=== PATIENT | female | born 1940 | race Caucasian/White ===

== ENCOUNTER → 2016-12-01 | Outpatient (CLI) | payer MEDICARE ==
--- NOTE | 2016-12-01 14:55 | US ---
EXAMINATION TYPE: US thyroid st tissue head/neck DATE OF EXAM: 12/01/2016 COMPARISON: US CLINICAL HISTORY: E03.9 HYPOTHYROIDISM,E04.2 MULTINODULAR GOITER,D72.819. History of thyroid nodules, on thyroid meds GLAND SIZE: Right Lobe: 4.2 x 1.5 x 1.4 cm Overall Parenchyma: heterogenous Left Lobe: 4.2 x 1.4 x 1.1 cm Overall Parenchyma: heterogeneous Isthmus Thickness: 0.4 cm NODULES RIGHT: # of nodules measured on right: 1 1. 0.5 X 0.4 x 0.5 cm hypoechoic mixed nodule at the upper pole with well-defined margins. This nod ule is wider than tall and shows intranodular vascularity. LEFT: # of nodules measured on left: 1 1. 0.7 X 0.7 x 0.6 cm isoechoic solid nodule at the lower pole with well-defined margins. This nodu le is taller than wide and shows no intranodular vascularity. ISTHMUS: # of nodules measured in the isthmus: 0 Bilateral neck scanned, left neck: 1.1cm hypoechoic vascular area, probable lymph node. Heterogeneous thyroid with bilateral subcentimeter nodules with largest measured on each side. IMPRESSION: MULTINODULAR GOITER.
== END | disposition home or self-care (01) ==
LOC: RADUSWWP 14:03
PROVIDERS: ATTEND Family Medicine
DX: E04.2 Nontoxic multinodular goiter (principal); Z00.00 Encounter for general adult medical examination without abnormal findings; D72.819 Decreased white blood cell count, unspecified; E03.9 Hypothyroidism, unspecified
CPT/HCPCS: 76536

== ENCOUNTER → 2018-12-13 | Outpatient (CLI) | payer MEDICARE ==
--- NOTE | 2018-12-13 09:01 | US ---
EXAMINATION TYPE: US abdomen complete DATE OF EXAM: 12/13/2018 COMPARISON: NONE CLINICAL HISTORY: R10.31 right lower quadrant pain. EXAM MEASUREMENTS: Liver Length: 14.7 cm Gallbladder Wall: 0.2 cm CBD: 0.2 cm Spleen: 6.5 cm Right Kidney: 10.2 x 4.5 x 5.2 cm Left Kidney: 9.5 x 4.0 x 5.5 cm Pancreas: Obscured by bowel gas Liver: Heterogeneous Gallbladder: wnl Evidence for sonographic Novoa's sign: No CBD: wnl Spleen: wnl Right Kidney: No hydronephrosis or masses seen Left Kidney: No hydronephrosis or masses seen Upper IVC: wnl Abd Aorta: Moderate amount of atherosclerotic plaque visualized. Within the proximal aorta there nikki ears to be saccular ectasia measuring up to 2.6 cm. The liver is heterogeneous. The intrahepatic portion of the IVC and proximal abdominal aorta are wit hin normal limits. There is no evidence of cholelithiasis. Common bile duct is unremarkable. The v isualized portions of the pancreas are homogenous. The spleen is unremarkable. Kidneys are symmetri c and free of hydronephrosis. No renal lesions are seen. Right lower quadrant was scanned with no paez spicious sonographic abnormality. IMPRESSION: 1. No suspicious sonographic abnormality in the right lower quadrant and the patient's area of pain. 2. Liver is slightly heterogenous but most commonly relates to early degree of hepatic steatosis. Cor relate with liver function tests. 3. Saccular proximal abdominal aortic ectasia measuring up to 2.6 cm.
== END | disposition home or self-care (01) ==
LOC: RADUSWWP 07:25
PROVIDERS: ATTEND Family Medicine
DX: K76.0 Fatty (change of) liver, not elsewhere classified (principal); I77.811 Abdominal aortic ectasia
CPT/HCPCS: 76700

== ENCOUNTER → 2019-12-26 | Outpatient (CLI) | payer MEDICARE ==
--- NOTE | 2020-01-01 10:42 | MM ---
Reason for exam: screening (asymptomatic). Last mammogram was performed 1 year and 1 month ago. History: Patient is postmenopausal and history of other cancer. Benign cyst aspiration of the right breast, 1975. Physical Findings: A clinical breast exam by your physician is recommended on an annual basis and results should be correlated with mammographic findings. MG 3D Screening Mammo W/Cad Bilateral CC and MLO view(s) were taken. Prior study comparison: December 02, 2018, mammogram, performed at [facility]. November 14, 2018, mammogram, performed at [facility]. The breast tissue is heterogeneously dense. This may lower the sensitivity of mammography. There is no discrete abnormality. No significant changes when compared with prior studies. ASSESSMENT: Negative, BI-RAD 1 RECOMMENDATION: Routine screening mammogram of both breasts in 1 year.
== END | disposition home or self-care (01) ==
LOC: RADMAMWWP 11:02
PROVIDERS: ATTEND Family Medicine
DX: Z12.31 Encounter for screening mammogram for malignant neoplasm of breast (principal)
CPT/HCPCS: 77063; 77067

== ENCOUNTER → 2020-03-10 | Outpatient (CLI) | payer MEDICARE ==
[~2020-03-10] MED LIST: REGADENOSON 0.4 MG/5 ML SYRINGE IV ONE
--- NOTE | 2020-03-10 11:32 | NM ---
EXAMINATION TYPE: NM stress lexiscan cardiolite DATE OF EXAM: 03/10/2020 COMPARISON: Prior nuclear medicine stress study November 23, 2014 HISTORY: History of tobacco use in the past along with COPD and family history of heart attack presen ts with chest pain TECHNIQUE: After the intravenous administration of 9.9 mCi Tc 99m Sestamibi - Cardiolite resting SPE CT images acquired 45 minutes post injection. The patient received 0.4mg Lexiscan, 25.1 mCi Tc 99m Sestamibi - Stress images obtained [address] injection FINDINGS: Review of stress and rest SPECT images demonstrates no distinct perfusion abnormality. Polar map pat ewhat confusing as there appears to be satisfactory radiotracer uptake on the raw data images. Gated analysis shows normal wall motion with an estimated left ventricular ejection fraction of 67 %. IMPRESSION: No scintigraphic evidence for reversible ischemia.
--- NOTE | 2020-03-10 14:44 | EST ---
EXERCISE STRESS AGE: 79 SEX: F HT: 5'6" WT: 160 lbs. PROTOCOL: Lexiscan STAGE: DURATION OF EXERCISE: 6 minutes HEART RATE REST: 56 BLOOD PRESSURE REST: 148/66 MAXIMUM HEART RATE ACHIEVED: 79 MAXIMUM BLOOD PRESSURE: 148/66 85% MPHR: 120 100% MPHR: 141 METS: INDICATIONS: Chest pain. CLINICAL INFORMATION: DATE OF SERVICE 03/10/2020 Baseline EKG revealed normal sinus rhythm without significant ST-T changes. There was some baseline artifact. With Lexiscan administration, the heart rate changed from 56- 79 beats per minute and blood pressure changed from 148/66 to 128/62, and came back to baseline. The patient did not have any significant symptoms. By EKG criteria, this is unremarkable Lexiscan stress test. The nuclear scan results which are more pertinent will be reported by the radiologist. GISSELLE / ILIANA: [id number] /
== END | disposition home or self-care (01) ==
LOC: RADNMMAIN 08:47
PROVIDERS: ATTEND Family Medicine
DX: R07.9 Chest pain, unspecified (principal); Z82.41 Family history of sudden cardiac death
CPT/HCPCS: 93017; 78452; A9500; J2785

== ENCOUNTER → 2020-04-08 | Outpatient (CLI) | payer MEDICARE ==
--- NOTE | 2020-04-08 20:23 | BD ---
EXAMINATION TYPE: Axial Bone Density DATE OF EXAM: 04/08/2020 COMPARISON: 04.08.2010 CLINICAL HISTORY: 79 YR OLD FEMALE.....ICD-10 CODE: M85.80 DISORDER OF BONE DENSITY Height: 63.4 Weight: 162 FRAX RISK QUESTIONS: Current Tobacco Use: QUIT 20 YRS AGO RISK FACTORS HISTORY OF: Surgery to Spine LAMINECTOMY LUMBAR SPINE....LONG AGO Family History of Osteoporosis: MOTHER Diet low in dairy products/other sources of calcium: NEEDS TO BE LACTOSE FREE Postmenopausal woman: YES, AT ABOUT 55 YRS OLD Take estrogen and/or progesterone medications: IN THE PAST FOR A COUPLE YRS ONLY Lost more than 2 inches in height since high school: YES Hyperparathyroidism: NO Adrenal Insufficiency: NO MEDICATIONS: Prednisone or other steroids: IN THE PAST, BUT NOT REGULARLY Thyroid Medications: YES, SYNTHROID FOR ABOUT 3 YRS Additional Medications: NSAIDS FOR ARTHRITIS, REFLUX MEDS PRN, CHOLESTEROL MEDS, VIT D3 Additional History: CHOLESTEROL AND ARTHRITIS EXAM MEASUREMENTS: Bone mineral densitometry was performed using the [employer] System. SPINE NOT SCANNED.....LAMINECTOMY Bone mineral density about the R hip (g/cm2): 0.852 Bone mineral density about the L hip (g/cm2): 0.983 T Score values are as follows: -----R Neck: -0.3 -----L Neck: 0.0 -----R Total: -1.2 -----L Total: -0.2 Bone mineral density has: Increased 2.6% since study of: 04.08.2010 FRAX%s: THERE IS A 9.3% CHANCE FOR A MAJOR OSTEOPOROTIC FX AND A 1.3% FOR HIP.....PROBABILITY FOR F X IN 10 YRS TIME Bone mineral density about the L Wrist (g/cm2): 0.445 T Score values are as follows: -----Dist. R+U: -3.5 -----Prox. R+U: -2.0 -----Radius total: -3.8 Bone mineral density FIRST FOREARM SCAN IMPRESSION: Osteoporosis (T Score less than -2.5). There is increased fracture risk and therapy is usually indicated based on age. Re-Screen 1-2 years. NOTE: T-SCORE=SD OF THE YOUNG ADULT MEAN.
== END | disposition home or self-care (01) ==
LOC: RADBDWWP 10:04
PROVIDERS: ATTEND Family Medicine
DX: M81.0 Age-related osteoporosis without current pathological fracture (principal)
CPT/HCPCS: 77080

== ENCOUNTER → 2020-11-17 | Outpatient (CLI) | payer MEDICARE ==
[2020-11-18 00:32] LABS: African American GFR (CKD) 70.5 (60.0-200.0); Albumin/Globulin Ratio 1.33 (1.60-3.17); Anion Gap 7.6 mmol/L (4.00-12.00); BUN/Creat Ratio 25.56 Ratio (12.00-20.00); Calcium 9.2 mg/dL (8.7-10.3); Carbon Dioxide 26.4 mmol/L (21.6-31.8); Non-African American GFR(CKD) 60.8 (60.0-200.0); Potassium 4.8 mmol/L (3.5-5.5); Total Bilirubin 0.6 mg/dL (0.2-1.2)
== END | disposition home or self-care (01) ==
LOC: LABWHC1 12:55
PROVIDERS: ATTEND Family Medicine
DX: E03.9 Hypothyroidism, unspecified (principal); M85.9 Disorder of bone density and structure, unspecified
CPT/HCPCS: 36415; 80053; 84443

== ENCOUNTER → 2021-01-05 | Outpatient (CLI) | payer MEDICARE ==
--- NOTE | 2021-01-06 14:55 | MM ---
Reason for exam: screening (asymptomatic). Last mammogram was performed 1 year ago. History: Patient is postmenopausal and history of other cancer. Benign cyst aspiration of the right breast, 1975. Physical Findings: A clinical breast exam by your physician is recommended on an annual basis and results should be correlated with mammographic findings. MG 3D Screening Mammo W/Cad Bilateral CC and MLO view(s) were taken. Prior study comparison: December 26, 2019, bilateral MG 3d screening mammo w/cad. December 02, 2018, mammogram, performed at [facility]. The breast tissue is heterogeneously dense. This may lower the sensitivity of mammography. ASSESSMENT: Negative, BI-RAD 1 RECOMMENDATION: Routine screening mammogram of both breasts in 1 year.
== END | disposition home or self-care (01) ==
LOC: RADMAMWWP 09:58
PROVIDERS: ATTEND Family Medicine
DX: Z12.31 Encounter for screening mammogram for malignant neoplasm of breast (principal); Z78.0 Asymptomatic menopausal state; Z85.9 Personal history of malignant neoplasm, unspecified
CPT/HCPCS: 77063; 77067

== ENCOUNTER → 2022-01-09 | Outpatient (CLI) | payer MEDICARE ==
--- NOTE | 2022-01-10 11:32 | MM ---
Reason for Exam: Screening (asymptomatic). Last screening mammogram was performed 12 month(s) ago. Patient History: Menarche at age 13. First Full-Term at age 23. Postmenopausal. Other cancer. 1976, Benign Cyst Aspiration on the right side. Risk Values: Beverly 5 year model risk: 1.4%. NCI Lifetime model risk: 2.1%. Prior Study Comparison: 12/02/2018 Screening Mammogram, [facility]. 12/26/2019 Bilateral Screening Mammogram, [facility]. 01/05/2021 Bilateral Screening Mammogram, [facility]. Tissue Density: The breast tissue is heterogeneously dense. This may lower the sensitivity of mammography. Findings: Analyzed By CAD. There is no suspicious group of microcalcifications or new suspicious mass in either breast. Benign-appearing calcifications noted. Overall Assessment: Benign, BI-RAD 2 Management: Screening Mammogram of both breasts in 1 year. A clinical breast exam by your physician is recommended on an annual basis and results should be correlated with mammographic findings. Electronically signed and approved by: Clayton Chase M.D. Radiologis
== END | disposition home or self-care (01) ==
LOC: RADMAMWWP 10:53
PROVIDERS: ATTEND Family Medicine
DX: Z12.31 Encounter for screening mammogram for malignant neoplasm of breast (principal); Z78.0 Asymptomatic menopausal state
CPT/HCPCS: 77063; 77067

== ENCOUNTER → 2022-04-11 | Outpatient (CLI) | payer MEDICARE ==
--- NOTE | 2022-04-11 11:41 | US ---
EXAMINATION TYPE: US pelvis complete transvag DATE OF EXAM: 04/11/2022 COMPARISON: NONE CLINICAL HISTORY: R10.2 pelvic pain. Right side pain. TECHNIQUE: Transvaginal (TV) and Transabdominal (TA) . Transabdominal sonographic images of the pel vis were acquired. Transvaginal sonographic images were medically necessary to better assess the fol lowing anatomy: Endometrium, uterus Date of LMP: RESIDENCY PROGRAM COORDINATOR, EXAM MEASUREMENTS: Uterus: 6.7 x 3.9 x 3.0 cm Endometrial Stripe: 0.4 cm 1. Uterus: Anteverted Heterogenous, atrophic 2. Endometrium: Fluid visualized within endometrial canal 3. Right Ovary: Obscured by overlying bowel gas 4. Left Ovary: Obscured by overlying bowel gas 5. Bilateral Adnexa: Prominent vessels visualized in left adnexa. Echogenic area with shadow visual ized in left adnexa, no peristalsing, unknow origin, bowel vs calcification= 1.3 x 1.2 cm 6. Posterior cul-de-sac: no free fluid IMPRESSION: 1. No evidence for acute process. 2. Endometrium with trace fluid correlate for cervical stenosis. 3. Partially calcified lesion within the left adnexa with posterior acoustic shadowing. Further eval uation could be performed with CT. This may represent calcified inspissated stool versus calcified fi broid versus other etiologies.
== END | disposition home or self-care (01) ==
LOC: RADUSWWP 10:39
PROVIDERS: ATTEND Family Medicine
DX: R10.2 Pelvic and perineal pain (principal); N83.8 Other noninflammatory disorders of ovary, fallopian tube and broad ligament
CPT/HCPCS: 76830; 76856

== ENCOUNTER → 2022-04-19 | Outpatient (CLI) | payer MEDICARE ==
--- NOTE | 2022-04-19 13:38 | CT ---
EXAMINATION TYPE: CT pelvis w con DATE OF EXAM: 04/19/2022 COMPARISON: Pelvic ultrasound April 11, 2022 HISTORY: RLQ and pelvic pain CT DLP: 766.3 mGycm Automated exposure control for dose reduction was used. CONTRAST: Performed CT pelvis with oral and with IV Contrast, patient injected with 65ml mL of Isovue 300. FINDINGS: Oral contrast reaches level of the left and sigmoid colonic junction. No suspicious small or large caden wel dilatation. Contrast filled appendix. Visualized portion of both kidneys unremarkable. Uterus normal in size for a postmenopausal female and heterogeneous in appearance. There is left late ral 1.5 cm calcification or suspected calcified fibroid coronal image 36. Ovary smaller size correlat ing with patient's postmenopausal age. No free fluid in the pelvis. No adnexal masses. No groin hernia or adenopathy identified. Grade 1 anterolisthesis of L4 on L5. Moderate to severe disc space narrowing with vacuum disc phenome non at this level. Severe disc space narrowing L5-S1 level. Moderate axial joint space loss and spurr ing of both hips. IMPRESSION: No acute findings identified to account for patient's symptoms of right lower quadrant an d pelvic pain
== END | disposition home or self-care (01) ==
LOC: RADCTMAIN 10:40
PROVIDERS: ATTEND Family Medicine
DX: R10.84 Generalized abdominal pain (principal)
CPT/HCPCS: 82565; 84520; 72193; 36415; Q9967

== ENCOUNTER → 2023-01-11 | Outpatient (CLI) | payer MEDICARE ==
--- NOTE | 2023-01-11 12:27 | BD ---
EXAMINATION TYPE: Axial Bone Density DATE OF EXAM: 01/11/2023 CLINICAL HISTORY: 82 years old Female. ICD-10 CODE: M81.0 AGE RELATED OSTEOPOROSIS Height: 63.5" Weight: 162.4lbs FRAX RISK QUESTIONS: Alcohol (3 or more units per day): No Family History (Parent hip fracture): No Glucocorticoids (More than 3mos): Yes, off an on for about 4 years (Ex: prednisone, prednisolone, methylprednisolone, dexamethasone, and hydrocortisone). History of Fracture in Adulthood: Yes Secondary Osteoporosis: 1. Type 1 Diabetes: No 2. Hyperthyroidism: No 3. Menopause before 45: No 4. Malnutrition: No 5. Chronic liver disease: No Rheumatoid Arthritis: No Current Tobacco Use: No RISK FACTORS HISTORY OF: Hip Fracture (Right/Left): No Spine Fracture: No History of Wrist Fracture: No Surgery to Spine/Hip(right/left)/Wrist (right/left): Yes, laminectomy When: 53 years ago Family History of Osteoporosis: Yes, mother Active: Yes Diet low in dairy products/other sources of calcium: No Postmenopausal woman: Yes Lost more than 2 inches in height since high school: Yes Frequent falls: Yes Poor Health: No Hyperparathyroidism: No Adrenal Insufficiency: No MEDICATIONS: Prednisone or other steroids: No How Lon years on and off Thyroid Medications: Yes Which medication: Levothyroxine How Lon+ years Osteoporosis Medications: Yes, Roloxefne, 2-3 years Additional Medications: Cholesterol meds, levothyroxine, raloxifene, vitamin D, calcium Additional History: Laminectomy 50+ years ago EXAM MEASUREMENTS: Bone mineral densitometry was performed using the [employer] System. Bone mineral density about the R hip (g/cm2): 0.832 Bone mineral density about the L hip (g/cm2): 0.934 T Score values are as follows: -----R Neck: -0.4 -----L Neck: -0.4 -----R Total: -1.4 -----L Total: -0.6 Z Score values are as follows: -----R Neck: 1.7 -----L Neck: 1.7 -----R Total: 0.5 -----L Total: 1.3 Bone mineral density has: decreased -3.8% since study of: 04/08/2020 Bone mineral density about the L Wrist (g/cm2): 0.455 T Score values are as follows: -----Dist. R+U: -4.2 -----Prox. R+U: -2.1 -----Radius total: -3.6 Z Score values are as follows: -----Dist. R+U: -13 -----Prox. R+U: 0.7 -----Radius total: -0.7 Bone mineral density has: decreased -1.3% since study of: 04/08/2020 FRAX%s: The graph provided illustrates a 14.4% chance for a major osteoporotic fx and a 2.7% chance f or the hips probability for fx in 10 years time. IMPRESSION: Osteoporosis (T Score less than -2.5). There is increased fracture risk and therapy is usually indicated based on age. Re-Screen 1-2 years. NOTE: T-SCORE=SD OF THE YOUNG ADULT MEAN.
== END | disposition home or self-care (01) ==
LOC: RADBDWWP 11:15
PROVIDERS: ATTEND Family Medicine
DX: M81.0 Age-related osteoporosis without current pathological fracture (principal); M85.89 Other specified disorders of bone density and structure, multiple sites; M96.1 Postlaminectomy syndrome, not elsewhere classified
CPT/HCPCS: 77080

== ENCOUNTER 2023-03-24 11:13 | Observation (INO) | payer MEDICARE ==
[2023-03-24] MEDS ORDERED: FAMOTIDINE 20 MG/2 ML VIAL IV STA (11:40)
[2023-03-24] MEDS ORDERED: ASPIRIN 81 MG PO STA (11:40)
[2023-03-24] MEDS ORDERED: ONDANSETRON 4 MG/2 ML VIAL IVP STA (11:40)
--- NOTE | 2023-03-24 12:02 | ED ---
Chest Pain HPI - General Chief Complaint: Chest Pain Stated Complaint: Chest Pain Time Seen by Provider: 03/24/23 11:26 Source: patient, RN notes reviewed Mode of arrival: wheelchair Limitations: no limitations - History of Present Illness Initial Comments: 82-year-old female presents emergency Department chief complaint chest pain. Patient states that she has had some on-and-off symptoms but worsened since this morning. States it feels like someone is squeezing her chest. Patient does have some upper back pain. Patient states she was seen by her dentist recently for abdominal infection she's been taking a large amount Motrin which is been a bleeding stomach she does not nausea. Patient states she was just placed on antibiotics. She denies any prior coronary artery stents denies a history of hyperlipidemia diabetes or hypertension. - Related Data Home Medications Medication Instructions Recorded Confirmed Budesonide [Entocort EC] 3 mg PO DAILY 03/24/23 03/24/23 Calcium(Unknown Dose) 1 tab PO DAILY 03/24/23 03/24/23 Cranberry(Unknown Dose) 1 tab PO DAILY 03/24/23 03/24/23 Ibuprofen [Motrin] 800 mg PO Q6H PRN 03/24/23 03/24/23 L.acidoph,Paracasei, B.lactis 1 cap PO DAILY 03/24/23 03/24/23 [Probiotic] Levothyroxine Sodium [Synthroid] 75 mcg PO DAILY 03/24/23 03/24/23 Meloxicam [Mobic] 15 mg PO DIRECTED 03/24/23 03/24/23 Multivit-Min/FA/Lycopen/Lutein 1 tab PO DAILY 03/24/23 03/24/23 [Centrum Silver Tablet] Penicillin V Potassium [Pen Vee K] 500 mg PO Q6H 03/24/23 03/24/23 Psyllium Husk (with Sugar) 6 gm PO DAILY 03/24/23 03/24/23 [Metamucil Powder] Raloxifene [Evista] 60 mg PO DAILY 03/24/23 03/24/23 Rosuvastatin Calcium 5 mg PO DAILY 03/24/23 03/24/23 Tavaborole [Kerydin] 1 applic TOPICAL HS 03/24/23 03/24/23 Vitamin D3(Unknown Dose) 1 tab PO DAILY 03/24/23 03/24/23 Allergies Allergy/AdvReac Type Severity Reaction Status Date / Time Sulfa (Sulfonamide Allergy Swelling Verified 03/24/23 14:34 Antibiotics) face & lips sulfamethoxazole Allergy Swelling Verified 03/24/23 14:34 [From Bactrim] face & lips trimethoprim [From Bactrim] Allergy Swelling Verified 03/24/23 14:34 face & lips cephalexin monohydrate AdvReac Nausea & Verified 03/24/23 14:34 [From Keflex] Vomiting & Diarrhea Review of Systems ROS Statement: Those systems with pertinent positive or pertinent negative responses have been documented in the HPI. ROS Other: All systems not noted in ROS Statement are negative. EKG Findings - EKG Comments: EKG Findings:: EKG performed at 11:33 sinus bradycardia with first-degree block rate of 59 [place] 221 QRS 96 QT/QTC 402/402 - EKG Results: EKG: interpreted by PIOTR Past Medical History Past Medical History: Hyperlipidemia, Osteoarthritis (OA), Rheumatoid Arthritis (RA), Thyroid Disorder Additional Past Medical History / Comment(s): colitis Past Surgical History: Orthopedic Surgery General Exam Limitations: no limitations General appearance: alert, in no apparent distress Head exam: Present: atraumatic, normocephalic, normal inspection Eye exam: Present: normal appearance, PERRL, EOMI. Absent: scleral icterus, conjunctival injection, periorbital swelling ENT exam: Present: normal exam, normal oropharynx, mucous membranes moist Neck exam: Present: normal inspection, full ROM. Absent: tenderness, meningismus, lymphadenopathy Respiratory exam: Present: normal lung sounds bilaterally. Absent: respiratory distress, wheezes, rales, rhonchi, stridor Cardiovascular Exam: Present: regular rate, normal rhythm, normal heart sounds. Absent: systolic murmur, diastolic murmur, rubs, gallop, clicks GI/Abdominal exam: Present: soft, tenderness, normal bowel sounds. Absent: distended, guarding, rebound, rigid Course Vital Signs 03/24/23 03/24/23 03/24/23 11:19 11:46 12:15 Temperature 98.4 F 98.4 F Pulse Rate 65 57 L Pulse Rate [ 60 Director [employer] ] Respiratory 16 17 Rate Blood Pressure 169/69 180/89 O2 Sat by Pulse 99 99 Oximetry 03/24/23 03/24/23 13:40 14:40 Temperature 98.2 F Pulse Rate 65 60 Pulse Rate [ Director [employer] ] Respiratory 17 17 Rate Blood Pressure 135/72 128/73 O2 Sat by Pulse 98 97 Oximetry Chest Pain MDM - MDM Was pt. sent in by a medical professional or institution (MELISSA Brennan, SUPERVISOR AIRPLANE FLIGHT ATTENDANT, urgent care, hospital, or retirement...) When possible be specific @ -No Did you speak to anyone other than the patient for history (EMS, parent, family, police, friend...)? What history was obtained from this source @ -No Did you review nursing and triage notes (agree or disagree)? Why? @ -I reviewed and agree with nursing and triage notes Were old charts reviewed (outside hosp., previous admission, EMS record, old EKG, old radiological studies, urgent care reports/EKG's, retirement records)? Report findings @ -No old charts were reviewed Differential Diagnosis (chest pain, altered mental status, abdominal pain women, abdominal pain men, vaginal bleeding, weakness, fever, dyspnea, syncope, headache, dizziness, GI bleed, back pain, seizure, CVA, palpatations, mental health, musculoskeletal)? @ -nDifferential Chest Pain: Stable Angina, Unstable Angina, STEMI, NSTEMI Aortic Dissection, Pneumothorax, Musculoskeletal, Esophageal Spasm GERD, Cholecystitis, Pancreatitis, Zoster, this is not meant to be an all-inclusive list. ble EKG interpreted by me (3pts min.). @ -As above X-rays interpreted by me (1pt min.). @ -Chest x-ray shows no acute cardio pulmonary process CT interpreted by me (1pt min.). @ -None done U/S interpreted by me (1pt. min.). @ -None done What testing was considered but not performed or refused? (CT, X-rays, U/S, labs)? Why? @ -None What meds were considered but not given or refused? Why? @ -None Did you discuss the management of the patient with other professionals (professionals i.e. MELISSA Brennan, SUPERVISOR [employer]PL[employer] FLIGHT ATTENDANT, lab, RT, psych nurse, social work supervisor, rabbet operator, teacher, human resource officer, rn case management)? Give summary @ -[Dr. Arrieta for admission Was smoking cessation discussed for >3mins.? @ -No Was critical care preformed (if so, how long)? @ -No Were there social determinants of health that impacted care today? How? (Homelessness, low income, unemployed, alcoholism, drug addiction, transportation, low edu. Level, literacy, decrease access to med. care, penitentiary, rehab)? @ -No Was there de-escalation of care discussed even if they declined (Discuss DNR or withdrawal of care, Hospice)? DNR status @ -No What co-morbidities impacted this encounter? (DM, HTN, Smoking, COPD, CAD, Cancer, CVA, ARF, Chemo, Hep., AIDS, mental health diagnosis, sleep apnea, morbid obesity)? @ -None Was patient admitted / discharged? Hospital course, mention meds given and route, prescriptions, significant lab abnormalities, going to OR and other pertinent info. @ -Admitted patiently admitted for chest pain rule out negative troponin at this time d-dimer is 0.65 but age-appropriate. Patient will be admitted to [facility] with consult cardiology Undiagnosed new problem with uncertain prognosis? @ -No Drug Therapy requiring intensive monitoring for toxicity (Heparin, Nitro, Insulin, Cardizem)? @ -No Were any procedures done? @ -No Diagnosis/symptom? @ -Chest pain Acute, or Chronic, or Acute on Chronic? @ -Acute Uncomplicated (without systemic symptoms) or Complicated (systemic symptoms)? @ -complaint. Side effects of treatment? @ -No Exacerbation, Progression, or Severe Exacerbation? @ -No Poses a threat to life or bodily function? How? (Chest pain, USA, SD, pneumonia, PE, COPD, DKA, ARF, appy, cholecystitis, CVA, Diverticulitis, Homicidal, Suicidal, threat to staff... and all critical care pts) @ -yes at risk with chest pain for cardiac arrest Disposition Clinical Impression: Chest pain Disposition: ADMITTED IP TO THIS [facility] Time of Disposition: 14:01
[2023-03-24 12:22] LABS: Basophils % (A) 1 %; Eosinophils # (A) 0.1 k/uL (0-0.7); Eosinophils % (A) 3 %; HCT 37.7 % (34.0-46.0); HGB 12.6 gm/dL (11.4-16.0); Lymphocytes # (A) 1.2 k/uL (1.0-4.8); Lymphocytes % (A) 25 %; MCH 32.5 pg (25.0-35.0); MCHC 33.4 g/dL (31.0-37.0); MCV 97.5 fL (80.0-100.0); Mean Platelet Volume 7.4; Monocytes # (A) 0.4 k/uL (0-1.0); Monocytes % (A) 8 %; Neutrophils # (A) 2.9 k/uL (1.3-7.7); Neutrophils % (A) 60 %; Platelet Count 261 k/uL (150-450); RBC 3.87 m/uL (3.80-5.40); RDW 12.2 % (11.5-15.5); WBC 4.8 k/uL (3.8-10.6)
--- NOTE | 2023-03-24 12:29 | XR ---
EXAMINATION TYPE: XR chest 2V DATE OF EXAM: 03/24/2023 COMPARISON: NONE HISTORY: Chest pain TECHNIQUE: Frontal and lateral views of the chest are obtained. FINDINGS: There is no focal air space opacity, pleural effusion, or pneumothorax seen. The cardiac silhouette size is within normal limits. The osseous structures are intact. IMPRESSION: No acute cardiopulmonary process.
[2023-03-24 12:34] LABS: INR 0.9 (<1.2); Partial Thromboplastin Time 22.2 sec (22.0-30.0); Prothrombin Time 9.6 sec (9.0-12.0)
[2023-03-24 12:43] LABS: ALT 22 U/L (4-34); AST 29 U/L (14-36); African American GFR (CKD) 75 (>60 ml/min/1.73 sqM); Albumin 3.8 g/dL (3.5-5.0); Alkaline Phosphatase 72 U/L (38-126); Anion Gap 8 mmol/L; Blood Urea Nitrogen 18 mg/dL (7-17); Calcium 9.4 mg/dL (8.4-10.2); Carbon Dioxide 24 mmol/L (22-30); Chloride 108 mmol/L (98-107); Glucose 92 mg/dL (74-99); Non-African American GFR(CKD) 65 (>60 ml/min/1.73 sqM); Potassium 4.8 mmol/L (3.5-5.1); Sodium 140 mmol/L (137-145); Total Bilirubin 0.5 mg/dL (0.2-1.3); Total Protein 7.5 g/dL (6.3-8.2)
[2023-03-24 12:51] LABS: NT-Pro-B-Type Natriuretic Pept 359 pg/mL
[2023-03-24] MEDS ORDERED: NITROGLYCERIN SL TABS 0.4 MG TAB SUBLINGUAL PRN (14:01)
--- NOTE | 2023-03-24 14:48 | P.HPIM ---
History of Present Illness H&P Date: 03/24/23 History of present illness; patient is a 82-year-old lady with past medical hist ory significant for colitis presented to the ER because of chest pain. Patient stated that she woke up this morning with chest pain that was central in location, felt like someone was squeezing her chest, associated with nausea, was radiating to the upper part of her stomach and back. No aggravating or relieving factors associated with this chest pain. Denies any shortness of breath. Denies any swelling of feet. Denies any fever or chills. Patient was recently diagnosed with tooth infection and was taking Motrin and penicillin for the infection. Denies any complaint of hematemesis. Denies any blood in stools. Because of this chest pain, patient came to the ER Initial lab work done in the ER showed WBC 4.8, hemoglobin 12.6, platelet count 261, d-dimer 0.65, sodium 140, potassium 4.8, BUN 18, creatinine 0.84 EKG done in the ER showed heart rate of 59, no ST segment elevation, no T-wave inversion seen Chest x-ray done in the ER showed no acute cardiopulmonary process Patient admitted to medicine service REVIEW OF SYSTEMS: CONSTITUTIONAL: No fever, no malaise, no fatigue. HEENT: No recent visual problems or hearing problems. Denied any sore throat. CARDIOVASCULAR: As mentioned in HPI PULMONARY: No shortness of breath, no cough, no hemoptysis. GASTROINTESTINAL: As mentioned in HPI NEUROLOGICAL: No headaches, no weakness, no numbness. HEMATOLOGICAL: Denies any bleeding or petechiae. GENITOURINARY: Denies any burning micturition, frequency, or urgency. MUSCULOSKELETAL/RHEUMATOLOGICAL: Denies any joint pain, swelling, or any muscle pain. ENDOCRINE: Denies any polyuria or polydipsia. The rest of the 14-point review of systems is negative. PHYSICAL EXAMINATION: GENERAL: The patient is alert and oriented x3, not in any acute distress. Well developed, well nourished. HEENT: Pupils are round and equally reacting to light. EOMI. No scleral icterus. No conjunctival pallor. Normocephalic, atraumatic. No pharyngeal erythema. No thyromegaly. CARDIOVASCULAR: S1 and S2 present. No murmurs, rubs, or gallops. PULMONARY: Chest is clear to auscultation, no wheezing or crackles. ABDOMEN: Soft, nontender, nondistended, normoactive bowel sounds. No palpable or ganomegaly. MUSCULOSKELETAL: No joint swelling or deformity. EXTREMITIES: No cyanosis, clubbing, or pedal edema. NEUROLOGICAL: Gross neurological examination did not reveal any focal deficits. SKIN: No rashes. Assessment and plan Chest pain GERD History of colitis Monitor vital signs Monitor CBC Monitor CMP Continue telemetry monitoring Trend troponin Ordered 2-D echo D-dimer was elevated, will order CT chest PE protocol Start patient on Protonix Added Carafate Avoid NSAIDs Cardiology consulted Labs and medication were reviewed.. Continue same treatment. Continue with symptomatic treatment. Resume home medication. Monitor labs and vitals. DVT and GI prophylaxis. Further recommendations as per clinical course of the patient Dictation was produced using [employer] dictation software. please excuse any grammatical, word or spelling errors. Past Medical History Past Medical History: Hyperlipidemia, Osteoarthritis (OA), Rheumatoid Arthritis (RA), Thyroid Disorder Additional Past Medical History / Comment(s): colitis Past Surgical History: Orthopedic Surgery Medications and Allergies Allergies Allergy/AdvReac Type Severity Reaction Status Date / Time Sulfa (Sulfonamide Allergy Swelling Verified 03/24/23 14:34 Antibiotics) face & lips sulfamethoxazole Allergy Swelling Verified 03/24/23 14:34 [From Bactrim] face & lips trimethoprim [From Bactrim] Allergy Swelling Verified 03/24/23 14:34 face & lips cephalexin monohydrate AdvReac Nausea & Verified 03/24/23 14:34 [From Keflex] Vomiting & Diarrhea Physical Exam Vitals: Vital Signs Temp Pulse Pulse Resp BP Pulse Ox 03/24/23 14:40 98.2 F 60 17 128/73 97 03/24/23 13:40 65 17 135/72 98 03/24/23 12:15 98.4 F 57 L 17 180/89 99 03/24/23 11:46 60 03/24/23 11:19 98.4 F 65 16 169/69 99 Intake and Output 03/23/23 03/24/23 03/24/23 22:59 06:59 14:59 Other: Weight 73.936 kg Results CBC & Chem 7: 03/24/23 11:44 03/24/23 11:44 Labs: Abnormal Lab Results - Last 24 Hours (Table) 03/24/23 03/24/23 Range/Units 11:44 11:44 D-Dimer 0.65 H (<0.60) mg/L FEU Chloride 108 H (98-107) mmol/L BUN 18 H (7-17) mg/dL
--- NOTE | 2023-03-24 15:21 | CT ---
EXAMINATION TYPE: CT chest angio for PE DATE OF EXAM: 03/24/2023 COMPARISON: None HISTORY: High D-Dimer CT DLP: 311.6 mGycm Automated exposure control for dose reduction was used. CONTRAST: CT Chest for pulmonary embolism performed with with IV Contrast, patient injected with 80 cc mL of Is ovue 370. FINDINGS: LUNGS: The lungs are grossly clear, there is no concerning parenchymal mass or nodule identified. T here is no pleural effusion or pneumothorax seen. The tracheobronchial tree is patent. MEDIASTINUM: There is satisfactory enhancement of the pulmonary artery and its branches, there is no CT evidence for pulmonary embolism. There are no greater than 1 cm hilar or mediastinal lymph nodes. No pericardial effusion is seen. OTHER: No additional significant abnormality is seen. IMPRESSION: 1. No acute cardiopulmonary disease. 2. No evidence of pulmonary embolism.
[2023-03-24] MEDS: ACETAMINOPHEN TAB 325 MG TAB PO PRN (17:45)
[2023-03-24] MEDS: SUCRALFATE 1 GM TAB PO SCH (17:45)
[2023-03-24] MEDS: PANTOPRAZOLE 40 MG/10 ML VIAL IVP SCH (19:54)
[2023-03-25] MEDS: PENICILLIN V POTASSIUM 250 MG TAB PO SCH ×3 (00:46→13:20)
[2023-03-25] MEDS: SUCRALFATE 1 GM TAB PO SCH ×2 (06:53→13:20)
[2023-03-25] MEDS: PANTOPRAZOLE 40 MG/10 ML VIAL IVP SCH (07:39)
[2023-03-25] MEDS: ACETAMINOPHEN TAB 325 MG TAB PO PRN (07:39)
[2023-03-25 08:37] VITALS: BP 106/46; PULSE 57; RESP 18; TEMP 97.6
[2023-03-25] MEDS ORDERED: ASPIRIN 325 MG TAB PO SCH (09:00)
[2023-03-25 09:48] LABS: Chol/HDL Ratio 1.72 Ratio; LDL Cholesterol,Calculated 47.2 mg/dL (0.0-131.0); VLDL Calculation 15.64 mg/dL (5.00-40.00)
[2023-03-25] MEDS ORDERED: Budesonide [Entocort Ec] 3 MG Capdr...Er PO SCH (10:45)
[2023-03-25] MEDS ORDERED: LEVOTHYROXINE 75 MCG TAB PO SCH (10:45)
[2023-03-25] MEDS ORDERED: CALCIUM PO SCH (10:45)
[2023-03-25 10:54] LABS: HGB 12.2 gm/dL (11.4-16.0); MCH 32.6 pg (25.0-35.0); MCHC 32.8 g/dL (31.0-37.0); MCV 99.4 fL (80.0-100.0); Mean Platelet Volume 8.1; Platelet Count 230 k/uL (150-450); RBC 3.72 m/uL (3.80-5.40); RDW 12.4 % (11.5-15.5); WBC 4.6 k/uL (3.8-10.6)
--- NOTE | 2023-03-25 11:52 | P.PN ---
Subjective Progress Note Date: 03/25/23 patient is a 82-year-old lady with past medical history significant for colitis presented to the ER because of chest pain. Patient stated that she woke up this morning with chest pain that was central in location, felt like someone was squeezing her chest, associated with nausea, was radiating to the upper part of her stomach and back. No aggravating or relieving factors associated with this chest pain. Denies any shortness of breath. Denies any swelling of feet. Denies any fever or chills. Patient was recently diagnosed with tooth infection and was taking Motrin and penicillin for the infection. Denies any complaint of hematemesis. Denies any blood in stools. Because of this chest pain, patient came to the ER Initial lab work done in the ER showed WBC 4.8, hemoglobin 12.6, platelet count 261, d-dimer 0.65, sodium 140, potassium 4.8, BUN 18, creatinine 0.84 EKG done in the ER showed heart rate of 59, no ST segment elevation, no T-wave inversion seen Chest x-ray done in the ER showed no acute cardiopulmonary process Patient admitted to medicine service 03/25. Patient seen and examined. States she gets chest pain when she takes deep breaths, chest pain is reproducible. Troponins have been negative REVIEW OF SYSTEMS: CONSTITUTIONAL: No fever, no malaise,. CARDIOVASCULAR: As mentioned above PULMONARY: No shortness of breath, no cough, GASTROINTESTINAL: No diarrhea, no nausea, no vomiting, no abdominal pain. NEUROLOGICAL: No headaches, no weakness, PHYSICAL EXAMINATION: GENERAL: The patient is alert and oriented x3, not in any acute distress. Well developed, well nourished. HEENT: Pupils are round and equally reacting to light. EOMI. No scleral icterus. No conjunctival pallor. Normocephalic, atraumatic. No pharyngeal erythema. No thyromegaly. CARDIOVASCULAR: S1 and S2 present. No murmurs, rubs, or gallops. PULMONARY: Chest is clear to auscultation, no wheezing or crackles. ABDOMEN: Soft, nontender, nondistended, normoactive bowel sounds. No palpable organomegaly. MUSCULOSKELETAL: No joint swelling or deformity. EXTREMITIES: No cyanosis, clubbing, or pedal edema. NEUROLOGICAL: Gross neurological examination did not reveal any focal deficits. SKIN: No rashes. Assessment and plan Chest pain GERD Hypothyroidism History of colitis Recent tooth infection Monitor vital signs Monitor CBC Monitor CMP Continue telemetry monitoring Trend troponin Ordered 2-D echo CT chest PE protocol negative for PE Continue Protonix and Carafate Avoid NSAIDs Cardiology consulted Labs and medication were reviewed.. Continue same treatment. Continue with symptomatic treatment. Resume home medication. Monitor labs and vitals. DVT and GI prophylaxis. Further recommendations as per clinical course of the patient Dictation was produced using [employer] dictation software. please excuse any grammatical, word or spelling errors. Objective - Vital Signs Vital signs: Vital Signs Temp 97.6 F 03/25/23 07:00 Pulse 57 L 03/25/23 07:00 Resp 18 03/25/23 07:00 BP 106/46 03/25/23 07:00 Pulse Ox 98 03/25/23 07:00 FiO2 Intake & Output 03/24/23 03/25/23 03/25/23 18:59 06:59 18:59 Intake Total 120 Balance 120 Weight 73.936 kg Intake: Oral 120 Other: Voiding Method Toilet Toilet # Voids 1 2 1 - Labs CBC & Chem 7: 03/25/23 05:26 03/24/23 11:44 Labs: Abnormal Lab Results - Last 24 Hours (Table) 03/24/23 03/24/23 03/25/23 Range/Units 11:44 11:44 05:26 D-Dimer 0.65 H (<0.60) mg/L FEU Chloride 108 H (98-107) mmol/L BUN 18 H (7-17) mg/dL HDL Cholesterol 87.20 H (40.00-60.00) mg/dL
--- NOTE | 2023-03-25 13:51 | CA ---
Transthoracic Echo Report Name: Deborah Mandujano Age: 82 Gender: F : 1940 Exam Date: 03/24/2023 17:28 Exam Location: [facility] Ht (in): 64 Wt (lb): 163 Ordering Physician: Isael Dawkins Attending/Referring Phys: MY, Mariza Pcb Designer Debby Warner RDCS Procedure CPT: Indications: Chest Pain Cardiac Hx: Technical Quality: Fair Contrast 1: Total Dose (mL): Contrast 2: Total Dose (mL): MEASUREMENTS (Male / Female) Normal Values 2D ECHO LV Diastolic Diameter PLAX 2.9 cm 4.2 - 5.9 / 3.9 - 5.3 cm LV Systolic Diameter PLAX 2.1 cm IVS Diastolic Thickness 1.4 cm 0.6 - 1.0 / 0.6 - 0.9 cm LVPW Diastolic Thickness 1.4 cm 0.6 - 1.0 / 0.6 - 0.9 cm LV Relative Wall Thickness 1.0 RV Internal Dim ED PLAX 2.7 cm LA Volume 56.8 cm??? 18 - 58 / 22 - 52 cm??? M-MODE Aortic Root Diameter MM 3.0 cm LA Systolic Diameter MM 2.9 cm LA Ao Ratio MM 1.0 AV Cusp Separation MM 1.8 cm DOPPLER AV Peak Velocity 143.9 cm/s AV Peak Gradient 8.3 mmHg AV Mean Velocity 111.3 cm/s AV Mean Gradient 5.2 mmHg AV Velocity Time Integral 33.9 cm AI Peak Velocity 381.4 cm/s AI Peak Gradient 58.2 mmHg AI Pressure Half Time 839.4 ms LVOT Peak Velocity 100.2 cm/s LVOT Peak Gradient 4.0 mmHg LVOT Velocity Time Integral 24.7 cm MV Area PHT 3.1 cm??? Mitral E Point Velocity 61.2 cm/s Mitral A Point Velocity 68.8 cm/s Mitral E to A Ratio 0.9 MV Deceleration Time 242.9 ms MV E' Velocity 4.4 cm/s Mitral E to MV E' Ratio 13.8 TR Peak Velocity 198.0 cm/s TR Peak Gradient 15.7 mmHg Right Ventricular Systolic Press 20.7 mmHg FINDINGS Left Ventricle Moderately increased left ventricular wall thickness. Left ventricular cavity size normal. Normal left ventricular systolic function with no obvious regional wall motion abnormalities. Left ventricular ejection fraction is estimated at 55-60 %. Right Ventricle Normal right ventricular size and function. Right ventricular systolic pressure within normal limits. Right Atrium Normal right atrial size. Left Atrium Mildly increased left atrial volume. Mitral Valve Structurally normal mitral valve. Mild mitral annular calcification. Mild mitral regurgitation. Aortic Valve Trileaflet aortic valve. No aortic stenosis. Mild aortic regurgitation. Tricuspid Valve Structurally normal tricuspid valve. Mild tricuspid regurgitation. Pulmonic Valve Trace pulmonic regurgitation. Pericardium No pericardial effusion. Aorta Normal size aortic root and proximal ascending aorta. CONCLUSIONS LVH with preserved systolic function Previewed by: Dr. Tom Lebron MD (Electronically Signed) Final Date: 25 March 2023 13:50
--- NOTE | 2023-03-25 14:36 | P.CRDCN ---
History of Present Illness Consult date: 03/25/23 Consult reason: chest pain History of present illness: The patient is an 82-year-old female who is currently admitted to the hospital with nausea and chest pain. 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 She was started on antibiotics. Over the last several days she developed persistent nausea and midsternal chest pain. DIAGNOSTICS: EKG shows sinus rhythm with first-degree AV block Chest x-ray shows no acute cardiopulmonary process Computed tomography scan the chest negative for pulmonary embolism Lab data: WBC 4.6, hemoglobin 12.2, hematocrit 37.0, platelet 2:30, d-dimer 0.65, sodium 140, potassium 4.8, BUN 18, creatinine 0.84, magnesium 2.0, AST 29, ALT 22, troponins negative 3, BNP 359, triglycerides 70 him LDL 47, HDL 87 Echocardiogram reveals preserved LV function with moderate LVH REVIEW OF SYSTEMS: No fever or chills. No cough or expectoration. No diaphoresis. Patient denies headache, dizziness, blurred vision, double vision. Patient denies any stomach discomfort. No nausea, vomiting. No hematochezia. No hematemesis. Denies any black stools or blood in his stools. Denies dysuria or hematuria. Reproducible anterior chest wall pain to palpation. No difficulty br eathing. PHYSICAL EXAMINATION: This is a 82-year-old female in no apparent distress at the time of my examination. HEENT: Head is atraumatic, normocephalic. Pupils are equal, round. Sclerae anicteric. Conjunctivae are clear. Mucous membranes of the mouth are moist. Neck is supple. There is no jugular venous distention. No carotid bruit is heard. CHEST EXAMINATION: Lungs are clear to auscultation. No chest wall tenderness is noted on palpation or with deep breathing. HEART EXAMINATION: Heart regular rate and rhythm. S1, S2 heard. No murmurs, gallops or rub. ABDOMEN: Soft, nontender. Bowel sounds are heard. No organomegaly noted. EXTREMITIES: 2+ peripheral pulses with no evidence of peripheral edema and no calf tenderness noted. NEUROLOGIC EXAMINATION: Patient is awake, alert and oriented x3. FINAL ASSESSMENT AND PLAN: Chest pain, musculoskeletal First-degree AV block Tooth abscess PLAN: Agree with GI consult/follow-up No need for high dose aspirin Continue atorvastatin Outpatient follow-up for stress testing May be discharged from the cardiac standpoint I am dictating on behalf of Dr Tom Lebron's history/physical and assessment/plan. Past Medical History Past Medical History: Hyperlipidemia, Osteoarthritis (OA), Rheumatoid Arthritis (RA), Thyroid Disorder Additional Past Medical History / Comment(s): colitis History of Any Multi-Drug Resistant Organisms: None Reported Past Surgical History: Orthopedic Surgery Additional Past Surgical History / Comment(s): left foot sx Smoking Status: Never smoker Medications and Allergies Home Medications Medication Instructions Recorded Confirmed Type Budesonide [Entocort EC] 3 mg PO DAILY 03/24/23 03/24/23 History Calcium(Unknown Dose) 1 tab PO DAILY 03/24/23 03/24/23 History Cranberry(Unknown Dose) 1 tab PO DAILY 03/24/23 03/24/23 History L.acidoph,Paracasei, B.lactis 1 cap PO DAILY 03/24/23 03/24/23 History [Probiotic] Levothyroxine Sodium [Synthroid] 75 mcg PO DAILY 03/24/23 03/24/23 History Multivit-Min/FA/Lycopen/Lutein 1 tab PO DAILY 03/24/23 03/24/23 History [Centrum Silver Tablet] Penicillin V Potassium [Pen Vee K] 500 mg PO Q6H 03/24/23 03/24/23 History Psyllium Husk (with Sugar) 6 gm PO DAILY 03/24/23 03/24/23 History [Metamucil Powder] Raloxifene [Evista] 60 mg PO DAILY 03/24/23 03/24/23 History Rosuvastatin Calcium 5 mg PO DAILY 03/24/23 03/24/23 History Tavaborole [Kerydin] 1 applic TOPICAL HS 03/24/23 03/24/23 History Vitamin D3(Unknown Dose) 1 tab PO DAILY 03/24/23 03/24/23 History Pantoprazole [Protonix] 40 mg PO DAILY 30 Days #30 tab 03/25/23 Rx Sucralfate [Carafate] 1 gm PO AC-TID 14 Days #42 tab 03/25/23 Rx Allergies Allergy/AdvReac Type Severity Reaction Status Date / Time Sulfa (Sulfonamide Allergy Swelling Verified 03/24/23 14:34 Antibiotics) face & lips sulfamethoxazole Allergy Swelling Verified 03/24/23 14:34 [From Bactrim] face & lips trimethoprim [From Bactrim] Allergy Swelling Verified 03/24/23 14:34 face & lips cephalexin monohydrate AdvReac Nausea & Verified 03/24/23 14:34 [From Keflex] Vomiting & Diarrhea Physical Exam Vitals: Vital Signs Temp Pulse Pulse Pulse Resp BP BP 03/25/23 07:00 97.6 F 57 L 18 106/46 03/25/23 02:16 98.0 F 50 L 16 129/64 03/25/23 02:00 52 L 03/24/23 19:54 63 03/24/23 19:49 98.2 F 63 18 03/24/23 15:00 97.7 F 56 L 16 03/24/23 14:40 98.2 F 60 17 128/73 03/24/23 13:40 65 17 135/72 BP Pulse Ox 03/25/23 07:00 98 03/25/23 02:16 95 03/25/23 02:00 03/24/23 19:54 03/24/23 19:49 111/56 94 L 03/24/23 15:00 155/70 98 03/24/23 14:40 97 03/24/23 13:40 98 Intake and Output 03/24/23 03/25/23 03/25/23 22:59 06:59 14:59 Intake Total 120 Balance 120 Intake: Oral 120 Other: Voiding Method Toilet Toilet # Voids 2 2 1 Results 03/25/23 05:26 03/24/23 11:44 Cardiac Enzymes 03/24/23 03/24/23 Range/Units 14:16 17:01 Troponin I <0.012 <0.012 (0.000-0.034) ng/mL Lipids 03/25/23 Range/Units 05:26 Triglycerides 78.20 (0.00-149.00) mg/dL Cholesterol 150.00 (0.00-200.00) mg/dL HDL Cholesterol 87.20 H (40.00-60.00) mg/dL Cholesterol/HDL Ratio 1.72 Ratio CBC 03/25/23 Range/Units 05:26 WBC 4.6 (3.8-10.6) k/uL RBC 3.72 L (3.80-5.40) m/uL Hgb 12.2 (11.4-16.0) gm/dL Hct 37.0 (34.0-46.0) % Plt Count 230 (150-450) k/uL Current Medications Generic Name Dose Route Start Last Admin Trade Name Freq PRN Reason Stop Dose Admin Acetaminophen 650 mg 03/24/23 16:57 03/25/23 07:39 Acetaminophen Tab 325 Mg Tab PO 650 mg Q6HR PRN Administration Fever and/ or Pain Aspirin 325 mg 03/25/23 09:00 03/25/23 07:39 Aspirin 325 Mg Tab PO 325 mg DAILY DAMIAN Administration Atorvastatin Calcium 10 mg 03/26/23 09:00 Atorvastatin 10 Mg Tab PO DAILY DAMIAN Levothyroxine Sodium 75 mcg 03/25/23 10:45 03/25/23 12:05 Levothyroxine 75 Mcg Tab PO 75 mcg DAILY@0630 DAMIAN Administration Nitroglycerin 0.4 mg 03/24/23 14:01 Nitroglycerin Sl Tabs 0.4 Mg Tab SUBLINGUAL Q5M PRN Chest Pain Budesonide [Entocort 3 mg 03/25/23 10:45 03/25/23 11:00 Ec] 3 Mg Capdr...Er PO Not Given DAILY [facility] Tavaborole [Kerydin] 1 applic 03/25/23 21:00 4 Ml Beth.W.Appl TOPICAL HS [facility] Pantoprazole Sodium 40 mg 03/24/23 21:00 03/25/23 07:39 Pantoprazole 40 Mg/10 Ml Vial IVP 40 mg BID DAMIAN Administration Penicillin V Potassium 500 mg 03/25/23 00:15 03/25/23 06:53 Penicillin V Potassium 250 Mg Tab PO 500 mg Q6H DAMIAN Administration Sucralfate 1 gm 03/24/23 17:30 03/25/23 06:53 Sucralfate 1 Gm Tab PO 1 gm AC-TID DAMIAN Administration Intake and Output 03/24/23 03/25/23 03/25/23 22:59 06:59 14:59 Intake Total 120 Balance 120 Intake: Oral 120 Other: Voiding Method Toilet Toilet # Voids 2 2 1 03/25/23 05:26 03/24/23 11:44
[2023-03-25] MEDS ORDERED: [UNRECOGNIZED DRUG - OTHER] TOPICAL SCH (21:00)
[2023-03-26] MEDS ORDERED: ATORVASTATIN 10 MG TAB PO SCH (09:00)
--- NOTE | 2023-03-27 09:23 | P.DS ---
Providers Date of admission: 03/24/23 13:56 Expected date of discharge: 03/27/23 Attending physician: John Arrieta MD Consults: 03/24/23 14:01 Consult Physician Urgent Consulting Provider: Tom Lebron Consult Reason/Comments: chest pain Do you want consulting provider notified?: Yes Primary care physician: Megan Paredes [facility] Hospital Course: Discharge diagnoses; Chest pain GERD Hypothyroidism History of colitis Recent tooth infection Hospital course; patient is a 82-year-old lady with past medical history significant for colitis presented to the ER because of chest pain. Patient stated that she woke up this morning with chest pain that was central in location, felt like someone was squeezing her chest, associated with nausea, was radiating to the upper part of her stomach and back. No aggravating or relieving factors associated with this chest pain. Denies any shortness of breath. Denies any swelling of feet. Denies any fever or chills. Patient was recently diagnosed with tooth infection and was taking Motrin and penicillin for the infection. Denies any complaint of hematemesis. Denies any blood in stools. Because of this chest pain, patient came to the ER Initial lab work done in the ER showed WBC 4.8, hemoglobin 12.6, platelet count 261, d-dimer 0.65, sodium 140, potassium 4.8, BUN 18, creatinine 0.84 EKG done in the ER showed heart rate of 59, no ST segment elevation, no T-wave inversion seen Chest x-ray done in the ER showed no acute cardiopulmonary process Patient admitted to medicine service 03/25. Patient seen and examined. States she gets chest pain when she takes deep breaths, chest pain is reproducible. Troponins have been negative. Cardiology don't think patient's pain is cardiac in nature. Started patient on Protonix and Carafate. Outpatient follow-up with GI recommended PHYSICAL EXAMINATION: GENERAL: The patient is alert and oriented x3, not in any acute distress. Well developed, well nourished. HEENT: Pupils are round and equally reacting to light. EOMI. No scleral icterus. No conjunctival pallor. Normocephalic, atraumatic. No pharyngeal erythema. No thyromegaly. CARDIOVASCULAR: S1 and S2 present. No murmurs, rubs, or gallops. PULMONARY: Chest is clear to auscultation, no wheezing or crackles. ABDOMEN: Soft, nontender, nondistended, normoactive bowel sounds. No palpable organomegaly. MUSCULOSKELETAL: No joint swelling or deformity. EXTREMITIES: No cyanosis, clubbing, or pedal edema. NEUROLOGICAL: Gross neurological examination did not reveal any focal deficits. SKIN: No rashes. Dictation was produced using [employer] dictation software. please excuse any grammatical, word or spelling errors. Patient Condition at Discharge: Stable Plan - Discharge Summary New Discharge Prescriptions: New Sucralfate [Carafate] 1 gm PO AC-TID 14 Days #42 tab Pantoprazole [Protonix] 40 mg PO DAILY 30 Days #30 tab Continue Multivit-Min/FA/Lycopen/Lutein [Centrum Silver Tablet] 1 tab PO DAILY L.acidoph,Paracasei, B.lactis [Probiotic] 1 cap PO DAILY Vitamin D3(Unknown Dose) 1 tab PO DAILY Calcium(Unknown Dose) 1 tab PO DAILY Budesonide [Entocort EC] 3 mg PO DAILY Tavaborole [Kerydin] 1 applic TOPICAL HS Penicillin V Potassium [Pen Vee K] 500 mg PO Q6H Rosuvastatin Calcium 5 mg PO DAILY Raloxifene [Evista] 60 mg PO DAILY Psyllium Husk (with Sugar) [Metamucil Powder] 6 gm PO DAILY Levothyroxine Sodium [Synthroid] 75 mcg PO DAILY Cranberry(Unknown Dose) 1 tab PO DAILY Discontinued Meloxicam [Mobic] 15 mg PO DIRECTED Ibuprofen [Motrin] 800 mg PO Q6H PRN PRN Reason: Pain Discharge Medication List Budesonide [Entocort EC] 3 mg PO DAILY 03/24/23 [History] Calcium(Unknown Dose) 1 tab PO DAILY 03/24/23 [History] Cranberry(Unknown Dose) 1 tab PO DAILY 03/24/23 [History] L.acidoph,Paracasei, B.lactis [Probiotic] 1 cap PO DAILY 03/24/23 [History] Levothyroxine Sodium [Synthroid] 75 mcg PO DAILY 03/24/23 [History] Multivit-Min/FA/Lycopen/Lutein [Centrum Silver Tablet] 1 tab PO DAILY 03/24/23 [History] Penicillin V Potassium [Pen Vee K] 500 mg PO Q6H 03/24/23 [History] Psyllium Husk (with Sugar) [Metamucil Powder] 6 gm PO DAILY 03/24/23 [History] Raloxifene [Evista] 60 mg PO DAILY 03/24/23 [History] Rosuvastatin Calcium 5 mg PO DAILY 03/24/23 [History] Tavaborole [Kerydin] 1 applic TOPICAL HS 03/24/23 [History] Vitamin D3(Unknown Dose) 1 tab PO DAILY 03/24/23 [History] Pantoprazole [Protonix] 40 mg PO DAILY 30 Days #30 tab 03/25/23 [Rx] Sucralfate [Carafate] 1 gm PO AC-TID 14 Days #42 tab 03/25/23 [Rx] Follow up Appointment(s)/Referral(s): Tom Lebron MD [STAFF PHYSICIAN] - 1 Week Megan Paredes MD [Primary Care Provider] - 1-2 days Patient Instructions/Handouts: Chest Pain (DC) Discharge Disposition: HOME SELF-CARE
== END 2023-03-25 14:10 | disposition home or self-care (01) ==
LOC: EC 11:13 → 6NMEDSUR 13:56
PROVIDERS: ADMIT Internal Medicine; ATTEND Internal Medicine
DX: R07.89 Other chest pain (principal); K21.9 Gastro-esophageal reflux disease without esophagitis; E03.9 Hypothyroidism, unspecified; K52.9 Noninfective gastroenteritis and colitis, unspecified; M54.6 Pain in thoracic spine; K04.7 Periapical abscess without sinus; E78.5 Hyperlipidemia, unspecified; R10.10 Upper abdominal pain, unspecified; R11.0 Nausea; M06.9 Rheumatoid arthritis, unspecified; M19.90 Unspecified osteoarthritis, unspecified site; Z88.2 Allergy status to sulfonamides; Z88.1 Allergy status to other antibiotic agents; I44.0 Atrioventricular block, first degree; Z79.890 Hormone replacement therapy; Z79.899 Other long term (current) drug therapy
CPT/HCPCS: 96376; 96375 ×2; 96374; 99285; 36415; 93005; 93306; 85379; 83880; 80061; 80053; 83735; 84484; 85025; 85027; 85610; 85730; 71046; 71275; G0378 ×2; J2405; J3490; C9113 ×2; Q9967

== ENCOUNTER → 2024-01-14 | Outpatient (CLI) | payer MEDICARE ==
--- NOTE | 2024-01-15 13:23 | MM ---
Reason for Exam: Screening (asymptomatic). Last screening mammogram was performed 12 month(s) ago. Patient History: Menarche at age 13. First Full-Term at age 23. Postmenopausal. Other cancer. 1975, Benign Cyst Aspiration on the right side. Risk Values: Beverly 5 year model risk: 1.3%. NCI Lifetime model risk: 1.7%. Prior Study Comparison: 01/05/2021 Bilateral Screening Mammogram, [facility]. 01/09/2022 Bilateral MG 3D screening mammo w/cad, [facility]. 01/11/2023 Bilateral MG 3D screening mammo w/cad, [facility]. Tissue Density: The breasts are heterogeneously dense, which may obscure small masses. Findings: Analyzed By CAD. There is no suspicious group of microcalcifications or new suspicious mass in either breast. Overall Assessment: Negative, BI-RAD 1 Management: Screening Mammogram of both breasts in 1 year. . Patient should continue monthly self-breast exams. A clinical breast exam by your physician is recommended on an annual basis. This exam should not preclude additional follow-up of suspicious palpable abnormalities. Note on Beverly scores and lifetime risk: 1. A Beverly score greater than 3% is considered moderate risk. If this is the case, consider specialist referral to assess eligibility for a risk reducing agent. 2. If overall lifetime risk for the development of breast cancer is 20% or higher, the patient may qualify for future screening with alternating mammogram and breast MRI. Electronically signed and approved by: Chet Chu M.D. [facility]
== END | disposition home or self-care (01) ==
LOC: RADMAMWWP 11:46
PROVIDERS: ATTEND Family Medicine
DX: Z12.31 Encounter for screening mammogram for malignant neoplasm of breast (principal); R92.333 Mammographic heterogeneous density, bilateral breasts; Z78.0 Asymptomatic menopausal state
CPT/HCPCS: 77063; 77067